=== PATIENT | male | born 1950 | race Caucasian/White ===

== ENCOUNTER → 2016-08-19 | Outpatient (CLI) | payer OTHER | LOC: HYPER 07:03 | DX: I87.333 Chronic venous hypertension (idiopathic) with ulcer and inflammation of bilateral lower extremity (principal); E11.622 Type 2 diabetes mellitus with other skin ulcer; L97.821 Non-pressure chronic ulcer of other part of left lower leg limited to breakdown of skin; L97.321 Non-pressure chronic ulcer of left ankle limited to breakdown of skin; E78.5 Hyperlipidemia, unspecified; Q05.9 Spina bifida, unspecified; G82.20 Paraplegia, unspecified; E11.40 Type 2 diabetes mellitus with diabetic neuropathy, unspecified; G89.29 Other chronic pain ==

== ENCOUNTER → 2016-09-16 | Outpatient (CLI) | payer OTHER | LOC: HYPER 07:06 | DX: I87.332 Chronic venous hypertension (idiopathic) with ulcer and inflammation of left lower extremity (principal); L97.321 Non-pressure chronic ulcer of left ankle limited to breakdown of skin; E78.5 Hyperlipidemia, unspecified; E11.622 Type 2 diabetes mellitus with other skin ulcer; E11.40 Type 2 diabetes mellitus with diabetic neuropathy, unspecified; G82.20 Paraplegia, unspecified ==

== ENCOUNTER → 2016-10-23 | Outpatient (CLI) | payer OTHER | LOC: HYPER 07:05 | DX: I87.333 Chronic venous hypertension (idiopathic) with ulcer and inflammation of bilateral lower extremity (principal); L97.811 Non-pressure chronic ulcer of other part of right lower leg limited to breakdown of skin; L97.821 Non-pressure chronic ulcer of other part of left lower leg limited to breakdown of skin; L97.321 Non-pressure chronic ulcer of left ankle limited to breakdown of skin; G82.20 Paraplegia, unspecified; E78.5 Hyperlipidemia, unspecified; Q05.9 Spina bifida, unspecified; E11.40 Type 2 diabetes mellitus with diabetic neuropathy, unspecified; G89.29 Other chronic pain ==

== ENCOUNTER → 2016-11-27 | Outpatient (CLI) | payer OTHER | LOC: HYPER 06:56 | DX: E11.622 Type 2 diabetes mellitus with other skin ulcer (principal); L97.821 Non-pressure chronic ulcer of other part of left lower leg limited to breakdown of skin; L97.321 Non-pressure chronic ulcer of left ankle limited to breakdown of skin; L97.811 Non-pressure chronic ulcer of other part of right lower leg limited to breakdown of skin; I87.333 Chronic venous hypertension (idiopathic) with ulcer and inflammation of bilateral lower extremity; G82.20 Paraplegia, unspecified; E11.40 Type 2 diabetes mellitus with diabetic neuropathy, unspecified; G89.29 Other chronic pain; E11.36 Type 2 diabetes mellitus with diabetic cataract; E78.5 Hyperlipidemia, unspecified; Q05.9 Spina bifida, unspecified ==

== ENCOUNTER → 2016-12-25 | Outpatient (CLI) | payer OTHER | LOC: HYPER 12-24 14:59 | DX: L89.323 Pressure ulcer of left buttock, stage 3 (principal); L89.893 Pressure ulcer of other site, stage 3; E11.622 Type 2 diabetes mellitus with other skin ulcer; E11.40 Type 2 diabetes mellitus with diabetic neuropathy, unspecified; I87.332 Chronic venous hypertension (idiopathic) with ulcer and inflammation of left lower extremity; L97.821 Non-pressure chronic ulcer of other part of left lower leg limited to breakdown of skin; L97.321 Non-pressure chronic ulcer of left ankle limited to breakdown of skin; G82.20 Paraplegia, unspecified; I10 Essential (primary) hypertension; E78.5 Hyperlipidemia, unspecified; E11.36 Type 2 diabetes mellitus with diabetic cataract; Z98.49 Cataract extraction status, unspecified eye ==

== ENCOUNTER → 2017-01-22 | Outpatient (CLI) | payer OTHER | LOC: HYPER 06:59 | DX: E11.622 Type 2 diabetes mellitus with other skin ulcer (principal); L97.821 Non-pressure chronic ulcer of other part of left lower leg limited to breakdown of skin; L97.321 Non-pressure chronic ulcer of left ankle limited to breakdown of skin; L97.811 Non-pressure chronic ulcer of other part of right lower leg limited to breakdown of skin; L89.893 Pressure ulcer of other site, stage 3; L89.323 Pressure ulcer of left buttock, stage 3; L98.411 Non-pressure chronic ulcer of buttock limited to breakdown of skin; I87.333 Chronic venous hypertension (idiopathic) with ulcer and inflammation of bilateral lower extremity; G82.20 Paraplegia, unspecified; E78.5 Hyperlipidemia, unspecified; Q05.9 Spina bifida, unspecified; E11.40 Type 2 diabetes mellitus with diabetic neuropathy, unspecified; G89.29 Other chronic pain; E11.36 Type 2 diabetes mellitus with diabetic cataract ==

== ENCOUNTER → 2017-02-26 | Outpatient (CLI) | payer OTHER | LOC: HYPER 02-25 13:50 | DX: L89.323 Pressure ulcer of left buttock, stage 3 (principal); L89.893 Pressure ulcer of other site, stage 3; I87.333 Chronic venous hypertension (idiopathic) with ulcer and inflammation of bilateral lower extremity; L97.321 Non-pressure chronic ulcer of left ankle limited to breakdown of skin; H26.9 Unspecified cataract; E11.622 Type 2 diabetes mellitus with other skin ulcer; L97.211 Non-pressure chronic ulcer of right calf limited to breakdown of skin; L98.411 Non-pressure chronic ulcer of buttock limited to breakdown of skin; G82.20 Paraplegia, unspecified; E78.5 Hyperlipidemia, unspecified; E11.40 Type 2 diabetes mellitus with diabetic neuropathy, unspecified; Z98.49 Cataract extraction status, unspecified eye ==

== ENCOUNTER → 2017-03-25 | Outpatient (CLI) | payer OTHER | LOC: HYPER 06:58 | DX: E11.622 Type 2 diabetes mellitus with other skin ulcer (principal); L97.321 Non-pressure chronic ulcer of left ankle limited to breakdown of skin; G82.20 Paraplegia, unspecified; E11.36 Type 2 diabetes mellitus with diabetic cataract; E78.5 Hyperlipidemia, unspecified; I10 Essential (primary) hypertension; E11.40 Type 2 diabetes mellitus with diabetic neuropathy, unspecified ==

== ENCOUNTER → 2017-06-03 | Outpatient (CLI) | payer OTHER | LOC: HYPER 06:37 | DX: E11.622 Type 2 diabetes mellitus with other skin ulcer (principal); L98.411 Non-pressure chronic ulcer of buttock limited to breakdown of skin; L89.323 Pressure ulcer of left buttock, stage 3; L89.312 Pressure ulcer of right buttock, stage 2; L97.321 Non-pressure chronic ulcer of left ankle limited to breakdown of skin; E11.36 Type 2 diabetes mellitus with diabetic cataract; E11.40 Type 2 diabetes mellitus with diabetic neuropathy, unspecified; I10 Essential (primary) hypertension; E78.5 Hyperlipidemia, unspecified; G82.20 Paraplegia, unspecified; G89.29 Other chronic pain; Z79.4 Long term (current) use of insulin ==

== ENCOUNTER → 2017-07-01 | Outpatient (CLI) | payer OTHER | LOC: HYPER 06:51 | DX: E11.622 Type 2 diabetes mellitus with other skin ulcer (principal); L97.321 Non-pressure chronic ulcer of left ankle limited to breakdown of skin; L98.411 Non-pressure chronic ulcer of buttock limited to breakdown of skin; L89.323 Pressure ulcer of left buttock, stage 3; E11.40 Type 2 diabetes mellitus with diabetic neuropathy, unspecified; G82.20 Paraplegia, unspecified; E78.5 Hyperlipidemia, unspecified; I10 Essential (primary) hypertension; E11.36 Type 2 diabetes mellitus with diabetic cataract; Z79.4 Long term (current) use of insulin ==

== ENCOUNTER → 2020-09-19 | Outpatient (CLI) | payer OTHER | LOC: HYPER 10:29 | PROVIDERS: ATTEND Specialist | DX: E11.621 Type 2 diabetes mellitus with foot ulcer (principal); L89.616 Pressure-induced deep tissue damage of right heel; L89.626 Pressure-induced deep tissue damage of left heel; L89.623 Pressure ulcer of left heel, stage 3; L97.411 Non-pressure chronic ulcer of right heel and midfoot limited to breakdown of skin; L97.421 Non-pressure chronic ulcer of left heel and midfoot limited to breakdown of skin; E11.40 Type 2 diabetes mellitus with diabetic neuropathy, unspecified; E11.36 Type 2 diabetes mellitus with diabetic cataract; E78.5 Hyperlipidemia, unspecified; E66.9 Obesity, unspecified; G82.20 Paraplegia, unspecified; G89.29 Other chronic pain; I10 Essential (primary) hypertension; Q05.9 Spina bifida, unspecified; R26.81 Unsteadiness on feet; J44.9 Chronic obstructive pulmonary disease, unspecified; M62.81 Muscle weakness (generalized); Z86.16 Personal history of COVID-19; Z74.1 Need for assistance with personal care; Z68.38 Body mass index [BMI] 38.0-38.9, adult; Z79.84 Long term (current) use of oral hypoglycemic drugs; Z79.82 Long term (current) use of aspirin ==

== ENCOUNTER → 2020-09-26 | Outpatient (CLI) | payer OTHER | LOC: HYPER 10:35 | PROVIDERS: ATTEND Specialist | DX: E11.621 Type 2 diabetes mellitus with foot ulcer (principal); L89.616 Pressure-induced deep tissue damage of right heel; L89.626 Pressure-induced deep tissue damage of left heel; L89.623 Pressure ulcer of left heel, stage 3; L97.411 Non-pressure chronic ulcer of right heel and midfoot limited to breakdown of skin; L97.421 Non-pressure chronic ulcer of left heel and midfoot limited to breakdown of skin; E11.40 Type 2 diabetes mellitus with diabetic neuropathy, unspecified; E11.36 Type 2 diabetes mellitus with diabetic cataract; E78.5 Hyperlipidemia, unspecified; E66.9 Obesity, unspecified; G82.20 Paraplegia, unspecified; G89.29 Other chronic pain; I10 Essential (primary) hypertension; Q05.9 Spina bifida, unspecified; R26.81 Unsteadiness on feet; J44.9 Chronic obstructive pulmonary disease, unspecified; M62.81 Muscle weakness (generalized); Z86.16 Personal history of COVID-19; Z74.1 Need for assistance with personal care; Z68.38 Body mass index [BMI] 38.0-38.9, adult; Z79.84 Long term (current) use of oral hypoglycemic drugs; Z79.82 Long term (current) use of aspirin ==

== ENCOUNTER → 2020-10-03 | Outpatient (CLI) | payer OTHER | LOC: HYPER 07:50 | PROVIDERS: ATTEND Specialist | DX: E11.621 Type 2 diabetes mellitus with foot ulcer (principal); L89.616 Pressure-induced deep tissue damage of right heel; L97.412 Non-pressure chronic ulcer of right heel and midfoot with fat layer exposed; L89.626 Pressure-induced deep tissue damage of left heel; L97.422 Non-pressure chronic ulcer of left heel and midfoot with fat layer exposed; E11.40 Type 2 diabetes mellitus with diabetic neuropathy, unspecified; E11.36 Type 2 diabetes mellitus with diabetic cataract; E78.5 Hyperlipidemia, unspecified; E66.9 Obesity, unspecified; G82.20 Paraplegia, unspecified; G89.29 Other chronic pain; I10 Essential (primary) hypertension; Q05.9 Spina bifida, unspecified; R26.81 Unsteadiness on feet; J44.9 Chronic obstructive pulmonary disease, unspecified; M62.81 Muscle weakness (generalized); Z86.16 Personal history of COVID-19; Z74.1 Need for assistance with personal care; Z68.38 Body mass index [BMI] 38.0-38.9, adult ==

== ENCOUNTER → 2020-12-05 | Outpatient (CLI) | payer OTHER | LOC: HYPER 07:46 | PROVIDERS: ATTEND Specialist | DX: E11.621 Type 2 diabetes mellitus with foot ulcer (principal); L89.626 Pressure-induced deep tissue damage of left heel; I70.244 Atherosclerosis of native arteries of left leg with ulceration of heel and midfoot; L97.422 Non-pressure chronic ulcer of left heel and midfoot with fat layer exposed; L89.623 Pressure ulcer of left heel, stage 3; L89.616 Pressure-induced deep tissue damage of right heel; L97.412 Non-pressure chronic ulcer of right heel and midfoot with fat layer exposed; I70.245 Atherosclerosis of native arteries of left leg with ulceration of other part of foot; L97.521 Non-pressure chronic ulcer of other part of left foot limited to breakdown of skin; S90.821A Blister (nonthermal), right foot, initial encounter; E11.40 Type 2 diabetes mellitus with diabetic neuropathy, unspecified; Q05.9 Spina bifida, unspecified; J44.9 Chronic obstructive pulmonary disease, unspecified; R26.81 Unsteadiness on feet; M62.81 Muscle weakness (generalized); G82.20 Paraplegia, unspecified; E11.36 Type 2 diabetes mellitus with diabetic cataract; E78.5 Hyperlipidemia, unspecified; G89.29 Other chronic pain; I10 Essential (primary) hypertension; Z74.1 Need for assistance with personal care; Z79.4 Long term (current) use of insulin; Z79.82 Long term (current) use of aspirin; Z86.16 Personal history of COVID-19; Z79.899 Other long term (current) drug therapy; X58.XXXA Exposure to other specified factors, initial encounter; Y93.89 Activity, other specified; Y92.89 Other specified places as the place of occurrence of the external cause; Y99.8 Other external cause status ==

== ENCOUNTER → 2021-01-16 | Outpatient (CLI) | payer OTHER | LOC: HYPER 07:57 | PROVIDERS: ATTEND Specialist | DX: E11.621 Type 2 diabetes mellitus with foot ulcer (principal); I70.244 Atherosclerosis of native arteries of left leg with ulceration of heel and midfoot; L89.626 Pressure-induced deep tissue damage of left heel; L97.422 Non-pressure chronic ulcer of left heel and midfoot with fat layer exposed; L89.623 Pressure ulcer of left heel, stage 3; L89.616 Pressure-induced deep tissue damage of right heel; L89.610 Pressure ulcer of right heel, unstageable; L97.412 Non-pressure chronic ulcer of right heel and midfoot with fat layer exposed; I70.245 Atherosclerosis of native arteries of left leg with ulceration of other part of foot; L97.521 Non-pressure chronic ulcer of other part of left foot limited to breakdown of skin; S90.821D Blister (nonthermal), right foot, subsequent encounter; E11.40 Type 2 diabetes mellitus with diabetic neuropathy, unspecified; Q05.9 Spina bifida, unspecified; J44.9 Chronic obstructive pulmonary disease, unspecified; R26.81 Unsteadiness on feet; M62.81 Muscle weakness (generalized); G82.20 Paraplegia, unspecified; E11.36 Type 2 diabetes mellitus with diabetic cataract; H26.9 Unspecified cataract; E78.5 Hyperlipidemia, unspecified; G89.29 Other chronic pain; I10 Essential (primary) hypertension; Z74.1 Need for assistance with personal care; Z79.4 Long term (current) use of insulin; Z79.82 Long term (current) use of aspirin; Z86.16 Personal history of COVID-19; X58.XXXD Exposure to other specified factors, subsequent encounter ==

== ENCOUNTER → 2021-02-06 | Outpatient (CLI) | payer OTHER | LOC: HYPER 07:46 | PROVIDERS: ATTEND Specialist | DX: E11.621 Type 2 diabetes mellitus with foot ulcer (principal); L89.626 Pressure-induced deep tissue damage of left heel; L89.623 Pressure ulcer of left heel, stage 3; L97.422 Non-pressure chronic ulcer of left heel and midfoot with fat layer exposed; L84 Corns and callosities; E11.40 Type 2 diabetes mellitus with diabetic neuropathy, unspecified; E11.36 Type 2 diabetes mellitus with diabetic cataract; H26.9 Unspecified cataract; E78.5 Hyperlipidemia, unspecified; E66.9 Obesity, unspecified; G82.20 Paraplegia, unspecified; G89.29 Other chronic pain; Q05.9 Spina bifida, unspecified; J44.9 Chronic obstructive pulmonary disease, unspecified; R26.81 Unsteadiness on feet; I10 Essential (primary) hypertension; M62.81 Muscle weakness (generalized); Z74.1 Need for assistance with personal care; Z79.4 Long term (current) use of insulin; Z79.82 Long term (current) use of aspirin; Z68.38 Body mass index [BMI] 38.0-38.9, adult; Z86.16 Personal history of COVID-19 ==

== ENCOUNTER → 2021-02-27 | Outpatient (CLI) | payer OTHER | LOC: HYPER 07:38 | PROVIDERS: ATTEND Specialist | DX: E11.621 Type 2 diabetes mellitus with foot ulcer (principal); L89.626 Pressure-induced deep tissue damage of left heel; L97.422 Non-pressure chronic ulcer of left heel and midfoot with fat layer exposed; L84 Corns and callosities; E11.40 Type 2 diabetes mellitus with diabetic neuropathy, unspecified; E11.36 Type 2 diabetes mellitus with diabetic cataract; H26.9 Unspecified cataract; E78.5 Hyperlipidemia, unspecified; E66.9 Obesity, unspecified; G82.20 Paraplegia, unspecified; G89.29 Other chronic pain; Q05.9 Spina bifida, unspecified; J44.9 Chronic obstructive pulmonary disease, unspecified; R26.81 Unsteadiness on feet; I10 Essential (primary) hypertension; M62.81 Muscle weakness (generalized); Z74.1 Need for assistance with personal care; Z79.4 Long term (current) use of insulin; Z79.82 Long term (current) use of aspirin; Z68.38 Body mass index [BMI] 38.0-38.9, adult; Z86.16 Personal history of COVID-19 ==

== ENCOUNTER → 2021-03-13 | Outpatient (CLI) | payer OTHER | LOC: HYPER 07:31 | PROVIDERS: ATTEND Specialist | DX: E11.621 Type 2 diabetes mellitus with foot ulcer (principal); L89.623 Pressure ulcer of left heel, stage 3; L97.422 Non-pressure chronic ulcer of left heel and midfoot with fat layer exposed; L84 Corns and callosities; E11.40 Type 2 diabetes mellitus with diabetic neuropathy, unspecified; E11.36 Type 2 diabetes mellitus with diabetic cataract; H26.9 Unspecified cataract; E78.5 Hyperlipidemia, unspecified; E66.9 Obesity, unspecified; G82.20 Paraplegia, unspecified; G89.29 Other chronic pain; Q05.9 Spina bifida, unspecified; J44.9 Chronic obstructive pulmonary disease, unspecified; R26.81 Unsteadiness on feet; I10 Essential (primary) hypertension; M62.81 Muscle weakness (generalized); Z74.1 Need for assistance with personal care; Z79.4 Long term (current) use of insulin; Z79.82 Long term (current) use of aspirin; Z68.38 Body mass index [BMI] 38.0-38.9, adult; Z86.16 Personal history of COVID-19 ==

== ENCOUNTER → 2021-04-17 | Outpatient (CLI) | payer OTHER | LOC: HYPER 09:21 | PROVIDERS: ATTEND Specialist | DX: E11.621 Type 2 diabetes mellitus with foot ulcer (principal); L89.626 Pressure-induced deep tissue damage of left heel; L97.421 Non-pressure chronic ulcer of left heel and midfoot limited to breakdown of skin; E11.40 Type 2 diabetes mellitus with diabetic neuropathy, unspecified; Q05.9 Spina bifida, unspecified; J44.9 Chronic obstructive pulmonary disease, unspecified; R26.81 Unsteadiness on feet; M62.81 Muscle weakness (generalized); R21 Rash and other nonspecific skin eruption; G83.9 Paralytic syndrome, unspecified; E11.36 Type 2 diabetes mellitus with diabetic cataract; H26.9 Unspecified cataract; E78.5 Hyperlipidemia, unspecified; G89.29 Other chronic pain; E11.22 Type 2 diabetes mellitus with diabetic chronic kidney disease; I12.9 Hypertensive chronic kidney disease with stage 1 through stage 4 chronic kidney disease, or unspecified chronic kidney disease; N18.9 Chronic kidney disease, unspecified; E66.9 Obesity, unspecified; Z68.38 Body mass index [BMI] 38.0-38.9, adult; Z74.1 Need for assistance with personal care; Z79.4 Long term (current) use of insulin; Z79.82 Long term (current) use of aspirin; Z79.899 Other long term (current) drug therapy; Z86.16 Personal history of COVID-19 ==

== ENCOUNTER → 2021-05-08 | Outpatient (CLI) | payer OTHER | LOC: HYPER 09:41 | PROVIDERS: ATTEND Specialist | DX: E11.621 Type 2 diabetes mellitus with foot ulcer (principal); L89.626 Pressure-induced deep tissue damage of left heel; L97.421 Non-pressure chronic ulcer of left heel and midfoot limited to breakdown of skin; L89.610 Pressure ulcer of right heel, unstageable; L97.411 Non-pressure chronic ulcer of right heel and midfoot limited to breakdown of skin; E11.40 Type 2 diabetes mellitus with diabetic neuropathy, unspecified; G82.20 Paraplegia, unspecified; Q05.9 Spina bifida, unspecified; J44.9 Chronic obstructive pulmonary disease, unspecified; R26.81 Unsteadiness on feet; M62.81 Muscle weakness (generalized); R21 Rash and other nonspecific skin eruption; E11.36 Type 2 diabetes mellitus with diabetic cataract; H26.9 Unspecified cataract; E78.5 Hyperlipidemia, unspecified; G89.29 Other chronic pain; E11.22 Type 2 diabetes mellitus with diabetic chronic kidney disease; I12.9 Hypertensive chronic kidney disease with stage 1 through stage 4 chronic kidney disease, or unspecified chronic kidney disease; N18.9 Chronic kidney disease, unspecified; I48.91 Unspecified atrial fibrillation; E66.9 Obesity, unspecified; Z86.16 Personal history of COVID-19; Z74.1 Need for assistance with personal care; Z68.38 Body mass index [BMI] 38.0-38.9, adult; Z79.4 Long term (current) use of insulin; Z79.82 Long term (current) use of aspirin; Z79.899 Other long term (current) drug therapy ==

== ENCOUNTER → 2021-05-29 | Outpatient (CLI) | payer OTHER | LOC: HYPER 09:46 | PROVIDERS: ATTEND Specialist | DX: E11.621 Type 2 diabetes mellitus with foot ulcer (principal); L89.626 Pressure-induced deep tissue damage of left heel; L97.421 Non-pressure chronic ulcer of left heel and midfoot limited to breakdown of skin; L97.411 Non-pressure chronic ulcer of right heel and midfoot limited to breakdown of skin; E11.40 Type 2 diabetes mellitus with diabetic neuropathy, unspecified; G82.20 Paraplegia, unspecified; Q05.9 Spina bifida, unspecified; J44.9 Chronic obstructive pulmonary disease, unspecified; R26.81 Unsteadiness on feet; M62.81 Muscle weakness (generalized); R21 Rash and other nonspecific skin eruption; E11.36 Type 2 diabetes mellitus with diabetic cataract; H26.9 Unspecified cataract; E78.5 Hyperlipidemia, unspecified; G89.29 Other chronic pain; E11.22 Type 2 diabetes mellitus with diabetic chronic kidney disease; I12.9 Hypertensive chronic kidney disease with stage 1 through stage 4 chronic kidney disease, or unspecified chronic kidney disease; N18.9 Chronic kidney disease, unspecified; I48.91 Unspecified atrial fibrillation; E66.9 Obesity, unspecified; Z68.38 Body mass index [BMI] 38.0-38.9, adult; Z86.16 Personal history of COVID-19; Z74.1 Need for assistance with personal care ==

== ENCOUNTER → 2021-06-19 | Outpatient (CLI) | payer OTHER | LOC: HYPER 09:56 | PROVIDERS: ATTEND Specialist | DX: E11.621 Type 2 diabetes mellitus with foot ulcer (principal); L89.626 Pressure-induced deep tissue damage of left heel; L97.421 Non-pressure chronic ulcer of left heel and midfoot limited to breakdown of skin; L97.411 Non-pressure chronic ulcer of right heel and midfoot limited to breakdown of skin; G82.20 Paraplegia, unspecified; E11.40 Type 2 diabetes mellitus with diabetic neuropathy, unspecified; Q05.9 Spina bifida, unspecified; J44.9 Chronic obstructive pulmonary disease, unspecified; R26.81 Unsteadiness on feet; M62.81 Muscle weakness (generalized); G89.29 Other chronic pain; E11.22 Type 2 diabetes mellitus with diabetic chronic kidney disease; I12.9 Hypertensive chronic kidney disease with stage 1 through stage 4 chronic kidney disease, or unspecified chronic kidney disease; N18.9 Chronic kidney disease, unspecified; I48.91 Unspecified atrial fibrillation; E11.36 Type 2 diabetes mellitus with diabetic cataract; H26.9 Unspecified cataract; E78.5 Hyperlipidemia, unspecified; E66.9 Obesity, unspecified; Z74.1 Need for assistance with personal care; Z86.16 Personal history of COVID-19; Z79.4 Long term (current) use of insulin; Z79.82 Long term (current) use of aspirin; Z79.899 Other long term (current) drug therapy ==

== ENCOUNTER → 2021-07-10 | Outpatient (CLI) | payer OTHER | LOC: HYPER 08:54 | PROVIDERS: ATTEND Specialist | DX: E11.621 Type 2 diabetes mellitus with foot ulcer (principal); L89.623 Pressure ulcer of left heel, stage 3; L97.421 Non-pressure chronic ulcer of left heel and midfoot limited to breakdown of skin; L84 Corns and callosities; E11.40 Type 2 diabetes mellitus with diabetic neuropathy, unspecified; Q05.9 Spina bifida, unspecified; G82.20 Paraplegia, unspecified; J44.9 Chronic obstructive pulmonary disease, unspecified; R26.81 Unsteadiness on feet; M62.81 Muscle weakness (generalized); G89.29 Other chronic pain; E11.22 Type 2 diabetes mellitus with diabetic chronic kidney disease; I12.9 Hypertensive chronic kidney disease with stage 1 through stage 4 chronic kidney disease, or unspecified chronic kidney disease; N18.9 Chronic kidney disease, unspecified; I48.91 Unspecified atrial fibrillation; E11.36 Type 2 diabetes mellitus with diabetic cataract; H26.9 Unspecified cataract; E78.5 Hyperlipidemia, unspecified; E66.9 Obesity, unspecified; Z74.1 Need for assistance with personal care; Z86.16 Personal history of COVID-19; Z79.4 Long term (current) use of insulin; Z79.82 Long term (current) use of aspirin; Z68.38 Body mass index [BMI] 38.0-38.9, adult ==